=== PATIENT | female | born 1990 | race African-American/Black ===

== ENCOUNTER 2018-04-09 14:55 | Emergency (ER) | payer SELFPAY ==
[2018-04-09 15:49] LABS: APPEARANCE,URINE SLIGHTLY-CLOUDY; BILIRUBIN,URINE NEGATIVE (NEGATIVE); COLOR,URINE YELLOW; GLUCOSE, URINE NEGATIVE (NEGATIVE); KETONES,URINE NEGATIVE (NEGATIVE); LEUKOCYTE ESTERASE,URINE NEGATIVE (NEGATIVE); NITRITE,URINE NEGATIVE (NEGATIVE); PROTEIN,URINE NEGATIVE (NEGATIVE); UROBILINOGEN,URINE NEGATIVE mg/dL (<2.0)
[2018-04-09] MEDS ORDERED: CEFTRIAXONE INJ 1000 MG VIAL IM ONE (16:09)
[2018-04-09] MEDS ORDERED: LIDOCAINE 1% INJ-PF (10 MG/ML) 30 ML SDV INJ ONE (16:09)
--- NOTE | 2018-04-09 16:13 | ER Document Report ---
HPI - HPI Pain Level: 4 Notes: Patient is a otherwise healthy 28-year-old female presenting with left flank pain, fever and urinary urgency. Patient reports that she thinks she may have a kidney infection. Patient denies any abdominal pain or vaginal discharge. Past Medical History - General Information source: Patient - Social History Smoking Status: Never Smoker Frequency of alcohol use: None Drug Abuse: None Family History: Reviewed & Not Pertinent - Medical History Medical History: Negative Surgical Hx: Negative - Immunizations Immunizations up to date: Yes Vertical Provider Document - CONSTITUTIONAL Notes: PHYSICAL EXAMINATION: GENERAL: Well-appearing, well-nourished and in no acute distress. HEAD: Atraumatic, normocephalic. EYES: Pupils equal round extraocular movements intact, conjunctiva are normal. ENT: Nares patent NECK: Normal range of motion ABDOMEN: Soft, nontender, no guarding no rebound. No CVA tenderness. LUNGS: No respiratory distress Musculoskeletal: Normal range of motion NEUROLOGICAL: Normal speech, normal gait. PSYCH: Normal mood, normal affect. SKIN: Warm, Dry, normal turgor, no rashes or lesions noted. Course - Re-evaluation Re-evalutation: Urinalysis is unremarkable. Will place patient on Keflex for cystitis. Urine sent for culture. Patient also given prescription for Diflucan as she states she always gets a yeast infection every time she takes an antibiotic. Patient discharged home in stable condition. - Vital Signs Vital signs: Temp Pulse Resp BP Pulse Ox 98.3 F 77 18 128/76 H 98 04/09/18 14:58 04/09/18 14:58 04/09/18 14:58 04/09/18 14:58 04/09/18 14:58 - Laboratory Laboratory results interpreted by me: 04/09/18 15:26 Urine Ascorbic Acid 20 H Discharge - Discharge Clinical Impression: Cystitis, Dysuria, Fever Condition: Stable Disposition: HOME, SELF-CARE Additional Instructions: URINARY TRACT INFECTION: Your evaluation indicates that you have a urinary tract infection. This is due to germs growing in the bladder. This is a common problem. This infection usually responds quickly to antibiotics. Your antibiotic should be taken exactly as prescribed. Drink plenty of fluids -- three to four quarts a day. Occasionally, a bladder anesthetic will be prescribed to help stop the feeling of urgency until the antibiotic has a chance to clear the infection. This may cause your urine to be dark orange. Certain urine infections require a culture. If the doctor obtained a culture, the results will be back in two days. You should call to see if a change in treatment is needed. A repeat urinalysis after you finish treatment is often recommended. The physician will let you know if further testing is required. Call the doctor if you develop fever, chills, flank pain, inability to urinate, or blood in the urine. ANTIBIOTIC THERAPY: You have been given an antibiotic prescription. It's important that you take all the medication, unless instructed otherwise by your physician. Failure to complete the entire course can result in relapse of your condition. Common side effects of antibiotics include nausea, intestinal cramping, or diarrhea. Women may develop vaginal yeast infections, and babies can get yeast (thrush) in the mouth following the use of antibiotics. Contact your physician if you develop significant side effects from this medication. Allergy to this antibiotic can result in hives, wheezing, faintness, or itching. If symptoms of allergy occur, stop the medication and call the doctor. CEPHALEXIN: The antibiotic you've been prescribed is a member of the cephalosporin class. This type of antibiotic covers a wide variety of infections, including those of the skin, lungs, and urinary tract. It's useful for staph infections. This antibiotic is slightly similar to the penicillin family. In rare cases , a person who is allergic to penicillin will also be allergic to this medication. If you have had a severe allergic reaction to penicillin, and have not taken this antibiotic since that time, notify your doctor. Antibiotics which cover many germs ("broad spectrum" antibiotics) are more likely to cause diarrhea or "yeast" infections. Women prone to vaginal yeast problems may suffer an attack after taking this antibiotic. In infants, oral thrush (white spots "stuck" on the cheek) or yeast diaper rash may result. See your doctor if these problems occur. Call at once if you develop itching, hives , shortness of breath, or lightheadedness. FOLLOW-UP CARE: If you have been referred to a physician for follow-up care, call the physician s office for an appointment as you were instructed or within the next two days. If you experience worsening or a significant change in your symptoms, notify the physician immediately or return to the Emergency Department at any time for re-evaluation. Your urine will be sent for culture, we will call you if there are any abnormalities. Please take the antibiotics exactly as prescribed. Continue taking either ibuprofen or Tylenol for pain and discomfort. Follow-up with your primary care provider in the next 3-5 days for a follow-up. Prescriptions: Cephalexin [Cephalexin 500 MG Capsule] 1 cap PO QID #28 cap Fluconazole [Diflucan] 150 mg PO ONCE PRN #1 tablet PRN Reason: Forms: Return to Work Referrals: LELIA MORGAN, PERSONNEL SCHEDULER [Primary Care Provider] - Follow up as needed
[2018-04-09 16:52] VITALS: BP 119/67
== END 2018-04-09 16:52 | disposition home or self-care (01) ==
LOC: ER 14:55
DX: N30.90 Cystitis, unspecified without hematuria (principal); R50.9 Fever, unspecified
CPT/HCPCS: 99283; 96372; 87086; 81001; J3490; J0696

== ENCOUNTER 2019-01-04 09:00 | Emergency (ER) | payer MEDICAID ==
--- NOTE | 2019-01-04 09:52 | ER Document Report ---
ED General - General Chief Complaint: Shoulder Pain Stated Complaint: SOULDER PAIN Time Seen by Provider: 01/04/19 09:36 - HPI Notes: Patient is a G3, P1 female approximately 5 weeks gestation who presents to the emergency department for evaluation of pelvic pain and left shoulder pain. She states she been having the pelvic pain for a few weeks. She just took her first test on Tuesday. Her last menstrual period was November 28. She states she has had intermittent cramping this seems worse over the last 48 hours. She also states she has had some left shoulder pain. She really cannot pin down a timeframe for that. She states it seems to ache, more when she first wakes up in the morning. She states she was doing some reading online, saw the correlation between left shoulder pain and ectopic , so she presents to the emergency department for further evaluation. She denies any vaginal bleeding or abnormal discharge. She has not yet seen OB. - Related Data Allergies/Adverse Reactions: No Known Allergies Allergy (Verified 04/09/18 14:59) Past Medical History - General Information source: Patient - Social History Smoking Status: Never Smoker Drug Abuse: Marijuana - Quit with Family History: Reviewed & Not Pertinent Renal/ Medical History: Denies: Hx Peritoneal Dialysis - Immunizations Immunizations up to date: Yes Review of Systems - Review of Systems Constitutional: No symptoms reported EENT: No symptoms reported Cardiovascular: No symptoms reported Respiratory: No symptoms reported Gastrointestinal: No symptoms reported Genitourinary: No symptoms reported Female Genitourinary: See HPI Musculoskeletal: See HPI Skin: No symptoms reported Neurological/Psychological: No symptoms reported Physical Exam - Vital signs Vitals: Temp Pulse Resp BP Pulse Ox 98.4 F 80 19 128/63 H 98 01/04/19 09:08 01/04/19 09:08 01/04/19 09:08 01/04/19 09:08 01/04/19 09:08 - Notes Notes: Vital signs reviewed, please refer to chart. Head is normocephalic, atraumatic. Pupils equal round, reactive to light. Neck is supple without meningismus. Heart is regular rate and rhythm. Lungs are clear to auscultation bilaterally. Abdomen is soft, minimal lower abdomen tenderness without rebound or guarding, normoactive bowel sounds throughout. Extremities without cyanosis, clubbing. Posterior calves are nontender. Peripheral pulses are equal. Skin is warm and dry. Patient is awake, alert, neurological exam is nonfocal. Examination of the left shoulder reveals no obvious deformity. No significant tenderness. Full range of motion of the shoulder, elbow, wrist, fingers, thumb. Neurovascularly intact distally to the left upper extremity. Course - Re-evaluation Re-evalutation: 01/04/19 12:28 Patient presents emergency department for evaluation. She has absolutely no vaginal bleeding. She is concerned about the possibility of ectopic . Quantitative beta, urinalysis, ultrasound were ordered. Ultrasound revealed an intrauterine gestation, gestational sac noted, yolk sac noted, no pole at this time. Patient is to follow-up. This is consistent with her dates. I do not have a clear etiology of her shoulder pain. She is told to apply moist heat to the shoulder area, Tylenol if absolutely necessary for pain. Follow-up with OB. She is to return to the ED with worsening or new concerning symptoms of any sort. - Vital Signs Vital signs: Temp Pulse Resp BP Pulse Ox 98.4 F 80 19 128/63 H 98 01/04/19 09:08 01/04/19 09:08 01/04/19 09:08 01/04/19 09:08 01/04/19 09:08 - Laboratory Laboratory results interpreted by me: 01/04/19 01/04/19 09:55 09:55 Beta HCG, Quant 9692.10 H Urine Urobilinogen 2.0 H Ur Leukocyte Esterase TRACE H Urine Ascorbic Acid 40 H - Diagnostic Test Radiology reviewed: Reports reviewed Radiology results interpreted by me: 01/04/19 12:29 Obstetrics Ultrasound 01/04/19 09:48 IMPRESSION: Intrauterine gestational sac suggesting a gestation of 5 weeks 6 days. pole is not yet seen. Follow-up as clinically indicated. Trimester of : First trimester - 0 to 13 weeks. Discharge - Discharge Clinical Impression: Pelvic pain affecting , Left shoulder pain Condition: Stable Disposition: HOME, SELF-CARE Instructions: Pelvic Pain in ([facility]) Additional Instructions: Your ultrasound revealed a in your uterus. It is still very early, repeat ultrasound will likely be necessary. Follow-up with your OB next week. Return to the emergency department with worsening or new concerning symptoms of any sort.
[2019-01-04 10:13] LABS: AMORPHOUS SEDIMENT,URINE TRACE /HPF; APPEARANCE,URINE CLOUDY; BILIRUBIN,URINE NEGATIVE (NEGATIVE); COLOR,URINE YELLOW; GLUCOSE, URINE NEGATIVE (NEGATIVE); KETONES,URINE NEGATIVE (NEGATIVE); LEUKOCYTE ESTERASE,URINE TRACE (NEGATIVE); NITRITE,URINE NEGATIVE (NEGATIVE); PROTEIN,URINE NEGATIVE (NEGATIVE); URINE SPECIFIC GRAVITY 1.026
--- NOTE | 2019-01-04 11:54 | RADIOLOGY REPORT (SQ) ---
EXAM DESCRIPTION: U/S OB TRANSVAGINAL W/O DOP COMPLETED DATE/TIME: 01/04/2019 11:41 am REASON FOR STUDY: Pelvic pain, early COMPARISON: None. TECHNIQUE: Transvaginal static and realtime grayscale images acquired of the pelvis. Additional jhon cted spectral and color Doppler images recorded. All images stored on PACs. bHC,700 CLINICAL DATES: LMP 11/28/2018. 5 weeks 2 days. LIMITATIONS: None. FINDINGS: FETUS: Single Living intrauterine . ULTRASOUND EGA: 5 weeks 6 days by gestational sac size. ULTRASOUND JUAN CARLOS: 08/30/2018 EFW: Not applicable less than 20 weeks. CRL: Not seen. FHR: Not seen. Beats per minute. SURVEY: Too early to assess. AMNIOTIC FLUID: Adequate amount. PLACENTA: Not yet developed due to early gestation. SUBCHORIONIC BLEED: No SIZE OF BLEED: Not applicable. UTERUS: No masses. No anomalies. CERVICAL LENGTH: 2.9 cm. Closed. RIGHT ADNEXA: Normal ovary with normal vascular flow. 3.2 x 3.1 x 2.7 cm. 1.3 cm corpus luteum. No adnexal free fluid. No adnexal masses. LEFT ADNEXA: Normal ovary with normal vascular flow. No adnexal free fluid. No adnexal masses. FREE FLUID: None. OTHER: No other significant finding. IMPRESSION: Intrauterine gestational sac suggesting a gestation of 5 weeks 6 days. pole is no t yet seen. Follow-up as clinically indicated. Trimester of : First trimester - 0 to 13 weeks. TECHNICAL DOCUMENTATION: JOB ID: [id number]- All Rights Reserved rev Reading location - IP/workstation name: [email or web address]
[2019-01-04 13:00] VITALS: BP 126/79
== END 2019-01-04 13:00 | disposition home or self-care (01) ==
LOC: ER 09:00
DX: O26.91 Pregnancy related conditions, unspecified, first trimester (principal); M25.512 Pain in left shoulder; R10.2 Pelvic and perineal pain; Z3A.01 Less than 8 weeks gestation of pregnancy
CPT/HCPCS: 36415; 76817; 81001; 84702; 99284

== ENCOUNTER 2019-04-02 16:19 | Emergency (ER) | payer MEDICAID ==
--- NOTE | 2019-04-02 16:31 | ER Document Report ---
ED Medical Screen (RME) - General Chief Complaint: OB Problem (<20wks) Stated Complaint: VAGINAL BLEEDING Time Seen by Provider: 04/02/19 16:27 Mode of Arrival: Ambulatory Information source: Patient Notes: 29-year-old female presents to ED for complaint of pain burning with urination tinge when wipes. 3 no live . States she is 17 weeks and 6 days. She states she also on felt like she heard a or felt a pop and is had some internal pain in her rectal area since then. She states she called her TRAILER ASSEMBLER and they told her to take some Tylenol and keep her appointment which is Tuesday. She states she also had some nausea and vomiting on due to her reflux she took some medicine for that and is not having vomiting now. Patient is alert oriented respirations regular nonlabored speaking in full sentences. Patient denies smoking drinking or alcohol. I have greeted and performed a rapid initial assessment of this patient. A comprehensive ED assessment and evaluation of the patient, analysis of test results and completion of medical decision making process will be conducted by an additional ED providers. - Related Data Allergies/Adverse Reactions: No Known Allergies Allergy (Verified 04/09/18 14:59) Past Medical History Renal/ Medical History: Denies: Hx Peritoneal Dialysis - Immunizations Immunizations up to date: Yes
[2019-04-02 17:30] LABS: APPEARANCE,URINE CLOUDY; BILIRUBIN,URINE NEGATIVE (NEGATIVE); GLUCOSE, URINE NEGATIVE (NEGATIVE); KETONES,URINE TRACE mg/dL (NEGATIVE); PROTEIN,URINE 30 mg/dL (NEGATIVE); URINE SPECIFIC GRAVITY 1.029
[2019-04-02 17:31] LABS: COLOR,URINE YELLOW
[2019-04-02 18:38] VITALS: BP 122/78
[2019-04-02] MEDS ORDERED: CEFUROXIME 500 MG TABLET PO ONE (18:40)
--- NOTE | 2019-04-02 18:45 | ER Document Report ---
ED General - General Chief Complaint: Vag Bleeding, +preg <12wks Stated Complaint: VAGINAL BLEEDING Time Seen by Provider: 04/02/19 16:27 Mode of Arrival: Ambulatory TRAVEL OUTSIDE OF THE [place] IN LAST 30 DAYS: No - HPI Notes: 29-year-old female G3, P0 approximately 17/2 weeks by dates presents with some blood-tinged urine and dysuria. Gradual onset over 2 days. No cu rrent back pain. No current fever. No current vomiting. Moderate intensity, gradual onset. Denies any vaginal bleeding or leakage. No cramping or pelvic pain. No history of recent UTI or kidney infection. Sees the health department for OB and establish follow-up and has an appointment with her CASINO ENFORCEMENT AGENT on this Tuesday. No other modifying factors, no other associated symptoms, no other provocative or palliative factors. Moderate intensity, gradual onset. - Related Data Allergies/Adverse Reactions: No Known Allergies Allergy (Verified 04/09/18 14:59) Home Medications: medication for acid reflux (cannot remember medication). Past Medical History - General Information source: Patient - Social History Smoking Status: Never Smoker Family History: Reviewed & Not Pertinent Patient has suicidal ideation: No Patient has homicidal ideation: No - Medical History Notes: Currently Renal/ Medical History: Denies: Hx Peritoneal Dialysis - Immunizations Immunizations up to date: Yes Review of Systems - Review of Systems Notes: Review of systems as in the history of present illness, otherwise negative x 10 systems. Physical Exam - Vital signs Vitals: Temp Pulse Resp BP Pulse Ox 99.7 F 110 H 14 153/94 H 98 04/02/19 16:38 04/02/19 16:38 04/02/19 16:38 04/02/19 16:38 04/02/19 16:38 - Notes Notes: General: Well developed . HEENT: Normocephalic, atraumatic. Pupils equal round reactive to light. No JVD. Chest: No trauma. Respiratory: Good air exchange, normal excursion. Cardiac: Regular rhythm. No murmurs or gallops. Abdomen: Soft, benign. Nondistended. Nontender. Back: No asymmetry or gross abnormality. Motor: Grossly normal power and tone. Neurologic: Alert, nonfocal. Cranial nerves II-12 are intact. Sensation intact. 2+ reflexes, no clonus. Vascular: Well perfused. Normal peripheral pulses. Skin: No petechiae or purpura. Course - Re-evaluation Re-evalutation: 04/02/19 18:42 This is an exceptionally well-appearing 29-year-old female who presents the after mentioned symptoms. Patient seen by the provider in triage was ordered blood work and urine. Patient is refused any blood work or IV sticks. Urinalysis shows proteinuria, ketonuria, pyuria, hematuria and bacteriuria. Is unclear whether the patient may have some element of contamination. I spoke with her at length about the protein in her urine, she states ever since she was a little kid they have told her that she had protein in her urine. She otherwise is declined any IV access or further work-up, refused intramuscular injection. I am going to cover her with antibiotics for UTI, given a dose of cefuroxime and a prescription for the same. She has close follow-up, as well in appearance. Of note, I did check her blood pressure myself and is 122/78. She has no antecedent history of hypertension. She also has no headache, no visual changes, no history of preeclampsia. She is cautioned to return here immediately if she has any worsening otherwise is discharged home with a prescription for antibiotics and close outpatient follow-up. She also understands the critical need for outpatient follow-up with regard to proteinuria. Although this may be contamination, this will need to be research further as an outpatient. 04/02/19 18:43 - Vital Signs Vital signs: Temp Pulse Resp BP Pulse Ox 99.7 F 110 H 14 122/78 98 04/02/19 16:38 04/02/19 16:38 04/02/19 16:38 04/02/19 18:38 04/02/19 16:38 - Laboratory Laboratory results interpreted by me: 04/02/19 16:35 Urine Protein 30 H Urine Ketones TRACE H Urine Blood LARGE H Urine Urobilinogen 4.0 H Leukocyte Esterase Rfl MODERATE H Discharge - Discharge Clinical Impression: UTI (urinary tract infection) Qualifiers: Urinary tract infection type: acute cystitis Hematuria presence: with hematuria Qualified Code(s): N30.01 - Acute cystitis with hematuria Condition: Stable Disposition: HOME, SELF-CARE Instructions: Urinary Tract Infection ([facility]) Prescriptions: Cefuroxime Axetil [Ceftin 500 mg Tablet] 1 tab PO BID #20 tablet
== END 2019-04-02 19:20 | disposition home or self-care (01) ==
LOC: ER 16:19
DX: O23.10 Infections of bladder in pregnancy, unspecified trimester (principal); O12.10 Gestational proteinuria, unspecified trimester; O26.899 Other specified pregnancy related conditions, unspecified trimester; R31.0 Gross hematuria; R82.4 Acetonuria; R82.71 Bacteriuria; O99.619 Diseases of the digestive system complicating pregnancy, unspecified trimester; K21.9 Gastro-esophageal reflux disease without esophagitis; Z79.899 Other long term (current) drug therapy; Z3A.00 Weeks of gestation of pregnancy not specified
CPT/HCPCS: 99283; 87086; 81001; J3490

== ENCOUNTER 2019-09-04 10:34 | Outpatient (CLI) | payer MEDICAID ==
[2019-09-04 11:24] LABS: APPEARANCE,URINE SLIGHTLY-CLOUDY; BILIRUBIN,URINE NEGATIVE (NEGATIVE); COLOR,URINE YELLOW; GLUCOSE, URINE NEGATIVE (NEGATIVE); KETONES,URINE NEGATIVE (NEGATIVE); LEUKOCYTE ESTERASE,URINE SMALL (NEGATIVE); NITRITE,URINE NEGATIVE (NEGATIVE); PROTEIN,URINE 30 mg/dL (NEGATIVE); URINE SPECIFIC GRAVITY 1.027
[2019-09-04 11:46] LABS: BACTERIA (WET MOUNT) 4+ BACTERIA SEEN; EPITHELIALS (WET MOUNT) 4+ EPITHELIALS SEEN; RBCS (WET MOUNT) 1+ RBCS SEEN; T.VAGINALIS (WET MOUNT) NO TRICHOMONAS SEEN; WBCS (WET MOUNT) 2+ WBCS SEEN; YEAST (WET MOUNT) NO YEAST SEEN
[2019-09-04 11:49] LABS: URINE AMPHETAMINES SCREEN NEGATIVE; URINE BARBITURATES SCREEN NEGATIVE; URINE BENZODIAZEPINES SCREEN NEGATIVE; URINE COCAINE SCREEN NEGATIVE; URINE MARIJUANA (THC) SCREEN NEGATIVE; URINE METHADONE SCREEN NEGATIVE; URINE PHENCYCLIDINE SCREEN NEGATIVE
[2019-09-04] MEDS ORDERED: RINGERS SOLUTION,LACTATED 1,000 ML IV ONE (12:17)
--- NOTE | 2019-09-04 15:22 | RADIOLOGY REPORT (SQ) ---
EXAM DESCRIPTION: U/S OB LIMITED COMPLETED DATE/TIME: 09/04/2019 3:12 pm REASON FOR STUDY: Repeat RAMILA after IV hydration COMPARISON: None. TECHNIQUE: Limited transabdominal grayscale ultrasound for evaluation of specific requested obstetri angelo parameters. LIMITATIONS: None. FINDINGS: CERVICAL LENGTH: Not seen. RAMILA: 11.8 cm. FHR: 141 beats per minute. PRESENTATION: Cephalic. PLACENTA: Anterior. Grade 2 ANATOMY: Not assessed OTHER: 40 week gestation. IMPRESSION: LIMITED OBSTETRICAL ULTRASOUND WITH MEASURED PARAMETERS DELINEATED ABOVE. Trimester of : Third trimester - 28 weeks to delivery. TECHNICAL DOCUMENTATION: JOB ID: [id number] 2010 [employer]- All Rights Reserved Reading location - IP/workstation name: [email or web address]
--- NOTE | 2019-09-04 17:29 | Non Stress Test Report ---
Non Stress Test Datetime Report Generated by CPN: 09/04/2019 17:29 DEMOGRAPHIC EGA NST: 40.0 INDICATION Indication for Study (NST) Other: LABOR CHECK VITAL SIGNS Pulse - NST: 87 RESP - NST: 16 NBPSYS NST: 131 NBPDIA NST: 72 MONITORING Monitor Explained: Monitor Explained; Test Explained; Patient Verbalized Understanding Monitor Explained: Monitor Explained; Test Explained; Patient Verbalized Understanding Time on Monitor: 09/04/2019 11:10 Time on Monitor: 09/04/2019 11:10 Time off Monitor: 09/04/2019 14:51 NST Duration: 221 NST INTERVENTIONS NST Interventions: PO Hydration; Reposition Patient NST Interventions: PO Hydration; Reposition Patient Physician Notified NST: Estrellita EDMONDSON CNM BABY A: [id number] BABY A Movement : Present Contraction Frequency : IRREG Contraction Frequency : irregular FHR Baseline : 140 Accelerations : 15X15 Decelerations : Late Variability : Moderate 6-25bpm NST Review: Meets Criteria for Reactive NST NST Review and Verified By : ELLA BENEDICT RN NST Results: Reactive NST REPORT Report Trigger: Send Report
== END 2019-09-04 16:46 | disposition home or self-care (01) ==
LOC: LC 10:34
PROVIDERS: ATTEND Obstetrics & Gynecology
PROC: 4A1HXCZ Monitoring of Products of Conception, Cardiac Rate, External Approach (ICD-10-PCS; principal; 2019-09-04)
DX: O47.1 False labor at or after 37 completed weeks of gestation (principal); Z3A.40 40 weeks gestation of pregnancy
CPT/HCPCS: 87210; 81005; 80307; 84112; 76815; 59025; Q0114

== ENCOUNTER 2019-09-06 13:18 | Inpatient (IN) | payer MEDICAID ==
[2019-09-06 13:55] LABS: APPEARANCE,URINE CLOUDY; BILIRUBIN,URINE NEGATIVE (NEGATIVE); COLOR,URINE YELLOW; GLUCOSE, URINE NEGATIVE (NEGATIVE); KETONES,URINE NEGATIVE (NEGATIVE); LEUKOCYTE ESTERASE,URINE TRACE (NEGATIVE); NITRITE,URINE NEGATIVE (NEGATIVE); PROTEIN,URINE 30 mg/dL (NEGATIVE); URINE SPECIFIC GRAVITY 1.023
[2019-09-06 14:27] LABS: URINE AMPHETAMINES SCREEN NEGATIVE; URINE BARBITURATES SCREEN NEGATIVE; URINE BENZODIAZEPINES SCREEN NEGATIVE; URINE COCAINE SCREEN NEGATIVE; URINE MARIJUANA (THC) SCREEN NEGATIVE; URINE METHADONE SCREEN NEGATIVE; URINE PHENCYCLIDINE SCREEN NEGATIVE
--- NOTE | 2019-09-06 16:59 | RADIOLOGY REPORT (SQ) ---
EXAM DESCRIPTION: U/S PROFILE W/O STRESS COMPLETED DATE/TIME: 09/06/2019 4:44 pm REASON FOR STUDY: NR NST COMPARISON: None. TECHNIQUE: Limited choudhary-scale realtime and static images of the fetus to measure specified parameter s. LIMITATIONS: None. FINDINGS: HEART RATE: 153 beats per minute. RAMILA: 1.6 cm. Oligohydramnios. BREATHING MOVEMENT: 2 points. MOVEMENT: 0 points. POSTURE AND TONE: 0 points. QUALITATIVE RAMILA: 0 points. OTHER: No other significant finding. IMPRESSION: BIOPHYSICAL PROFILE: 8. Trimester of : Third - 28 weeks to delivery RECOMMENDATION: Attempted unsuccessfully to report the results to the ordering physician at the numb er listed above. COMMENT: BREATHING MOVEMENTS: 2 POINTS: PRESENT 0 POINTS: ABSENT MOTION: 2 POINTS: PRESENT 0 POINTS: ABSENT TONE: 2 POINTS: PRESENT 0 POINTS: ABSENT AMNIOTIC FLUID VOLUME: 2 POINTS: LARGEST POCKET GREATER THAN 2 CM DEPTH. 0 POINTS: NO POCKET OF 2 CM. TECHNICAL DOCUMENTATION: JOB ID: [id number] 2010 [employer]- All Rights Reserved Reading location - IP/workstation name: [email or web address]
[2019-09-06] MEDS ORDERED: RINGERS SOLUTION,LACTATED 1,000 ML IV ONE (17:07)
[2019-09-06] MEDS ORDERED: DINOPROSTONE 10 MG VAGINAL INSERT.SR PV PRN (17:07)
--- NOTE | 2019-09-06 17:07 | Admission Physical ---
Datetime Report Generated by CPN: 09/06/2019 17:06 CURRENT ADMISSION Chief Complaint: Suspected Ruptured Membranes Indication for Induction: Oligohydramnios Admit Impression : Term, Intrauterine ; No Active Labor Admit Plan: Admit to Unit; Initiate Labor Induction Protocol ALLERGIES Medication Allergies: No Medication Allergies: No Known Allergies (04/09/2018) Latex: No Latex Allergies Food Allergies: none Environmental Allergies: none OBSTETRICAL HISTORY EDC: 09/04/2019 00:00 : 1 Para: 0 Term: 0 : 0 SAB: 0 IAB: 0 Ectopic: 0 Livin Cesareans: 0 VBACs: 0 Multiple Births: 0 Gestational Diabetes: No Rh Sensitization: No Incompetent Cervix: No MARGRET: No Infertility: No ART Treatment: No Uterine Anomaly: No IUGR: No Hx Previous C/S: No Macrosomia: No Hx Loss/Stillborn: No PIH: No Hx : No Placenta Previa/Abruption: No Depression/PP Depression: No PTL/PROM: No Post Hemorrhage: No Current Procedures: Ultrasound; NST Obstetrical History Comments: G1: current SEE RECORDS Alcohol: No Marijuana : No Cocaine: No Other Illicit Drugs: No Cigarettes: Never Smoker. [id number] MEDICAL HISTORY Diabetes: No Blood Transfusion: No Pulmonary Disease (Asthma, TB): No Breast Disease: No Hypertension: No Personal Protection Specialist Surgery: No Heart Disease: No Hosp/Surgery: No Autoimmune Disorder: No Anesthetic Complications: No Kidney Disease: No Abnormal Pap Smear: No Neuro/Epilepsy: No Psychiatric Disorders: No Other Medical Diseases: No Hepatitis/Liver Disease: No Significant Family History: No Varicosities/Phlebitis: No Trauma/Violence : No Thyroid Dysfunction: No INFECTIOUS HISTORY Gonorrhea: No Genital Herpes: No Chlamydia: No Tuberculosis: No Syphilis: No Hepatitis: No HIV/AIDS Exposure: No Rash or Viral Illness: No HPV: No PHYSICAL EXAM General: Normal HEENT: Normal Neurologic: Normal Thyroid: Deferred Heart: Normal Lungs: Normal Breast: Deferred Back: Normal Abdomen: Normal Genitourinary Exam: Normal Extremities: Normal DTRs: Deferred Pelvic Type: Adequate Vital Signs: Reviewed; Within Normal Limits VAGINAL EXAM Dilatation: 0 Effacement: 0 Station: -3 Contraction Comments: rare (Annotations: Data stored by CPN on behalf of user) MEMBRANES Membranes: Intact FETUS A EGA: 40.2 Monitoring: External US FHR- Baseline: 140 Variability: Moderate 6-25bpm Accelerations: 10X10 Decelerations: None FHR Category: Category I Estimated Weight (gm): 3650 Presentation: Vertex Admit Comment: at 40+2 presented to L_D because she "felt a pop"-actim prom was negative. sent for BPP d/t NR NST in first 40 mins, showed RAMILA less than 2. pt agrees to IOL. P:cervidil tonight, IOL PLANS FOR LABOR AND DELIVERY Labor and Delivery: None Pain Management: Epidural Feeding Preference: Both Benefit of Breast Feed Discussed: Yes Circumcision: N/A INFORMED CONSENT Assignment: Wilder Jules MD Signature: with User ID: [email or web address] : with User ID: [email or web address]
[2019-09-06] MEDS ORDERED: DINOPROSTONE 10 MG VAGINAL INSERT.SR ONE (17:23)
[2019-09-06] MEDS ORDERED: LIDOCAINE 2% JELLY 5 ML TUBE ONE (17:23)
[2019-09-06] MEDS ORDERED: LIDOCAINE 2% JELLY 5 ML TUBE TOP ONE (17:25)
[2019-09-06 17:51] LABS: ABSOLUTE EOSINOPHILS # (AUTO) 0.1 10^3/uL (0.0-0.6); ABSOLUTE LYMPHOCYTES (AUTO) 1.8 10^3/uL (0.5-4.7); ABSOLUTE MONOCYTES (AUTO) 0.5 10^3/uL (0.1-1.4); ABSOLUTE NEUT (AUTO) 3.2 10^3/uL (1.7-8.2); BASOPHILS % (AUTO) 0.2 % (0-2); EOSINOPHILS % (AUTO) 1.2 % (0-6); HEMATOCRIT 36.9 % (36.0-47.0); HEMOGLOBIN 12.6 g/dL (12.0-15.5); LYMPHOCYTES % (AUTO) 32.6 % (13-45); MEAN CORPUSCULAR HGB CONC 34.2 g/dL (32.0-36.0); MEAN CORPUSCULAR VOLUME 91 fl (80-97); MONOCYTES % (AUTO) 8.9 % (3-13); PLATELET COUNT 239 10^3/uL (150-450); RED BLOOD COUNT 4.07 10^6/uL (3.72-5.28); RED CELL DISTRIBUTION WIDTH 13.8 % (11.5-14.0); SEGMENTED NEUTROPHILS % (AUTO) 57.1 % (42-78); TOTAL CELLS COUNTED % (AUTO) 100 %; WHITE BLOOD COUNT 5.6 10^3/uL (4.0-10.5)
[2019-09-06] MEDS ORDERED: ZOLPIDEM TARTRATE 5 MG TABLET ONE (21:34)
[2019-09-06] MEDS ORDERED: MORPHINE SULFATE 10 MG/ML INJ IV ONE (23:02)
[2019-09-06] MEDS ORDERED: MORPHINE SULFATE 10 MG/ML INJ ONE (23:04)
[2019-09-06] MEDS ORDERED: OXYTOCIN 10 UNIT/ML VIAL ONE (23:56)
[2019-09-06] MEDS ORDERED: LIDOCAINE 1% INJ-PF (10 MG/ML) 30 ML SDV ONE (23:57)
[2019-09-06] MEDS ORDERED: BUPIVACAINE HCL 0.25 % INJ/PF (2.5 MG/1 ML) 30 ML VIAL ONE (23:57)
[2019-09-06] MEDS ORDERED: EPHEDRINE SULFATE INJ 50 MG/1 ML AMPULE ONE (23:57)
[2019-09-06] MEDS ORDERED: MISOPROSTOL 0.2 MG TABLET ONE (23:57)
[2019-09-06] MEDS ORDERED: OXYTOCIN/NORMAL SALINE 20 UNIT/1,000 ML RTUINJ ONE (23:57)
[2019-09-06] MEDS ORDERED: FENTANYL/BUPIVACAINE/NS/PF 300 MCG/150 ML RTUINJ EPI ONE (23:58)
[2019-09-07] MEDS ORDERED: MEASLES,MUMPS&RUBELLA VACC/PF 0.5 ML VIAL SUBCUT PRN (03:14)
[2019-09-07] MEDS ORDERED: MAGNESIUM HYDROXIDE SUSP 30 ML UDCUP PO PRN (03:14)
[2019-09-07] MEDS ORDERED: PSEUDOEPHEDRINE HCL 30 MG TABLET PO PRN (03:14)
[2019-09-07] MEDS ORDERED: PROMETHAZINE HCL INJ 25 MG/1 ML VIAL IV PRN (03:14)
[2019-09-07] MEDS ORDERED: DIPHENHYDRAMINE HCL 25 MG CAPSULE PO PRN (03:14)
[2019-09-07] MEDS ORDERED: GLYCERIN/WITCH HAZEL LEAF 1 EACH MED..WIPE TP PRN (03:14)
[2019-09-07] MEDS ORDERED: DIPH/PERTUSS(ACELL)/TETANUS VAC/PF 0.5 ML SYR (>=10YO) IM PRN (03:14)
[2019-09-07] MEDS ORDERED: ZOLPIDEM TARTRATE 5 MG TABLET PO PRN (03:14)
[2019-09-07] MEDS ORDERED: OXYTOCIN/NORMAL SALINE 20 UNIT/1,000 ML RTUINJ IV PRN ×2 (03:14→05:00)
[2019-09-07] MEDS ORDERED: BENZOCAINE/MENTHOL AEROSOL SPRAY 56 ML TOP PRN (03:14)
[2019-09-07] MEDS ORDERED: ACETAMINOPHEN 650 MG SUPP.RECT PR PRN (03:14)
[2019-09-07] MEDS ORDERED: DIBUCAINE 1% OINTMENT 28 GM TP PRN (03:14)
[2019-09-07] MEDS ORDERED: PROMETHAZINE HCL 25 MG SUPP.RECT PR PRN (03:14)
[2019-09-07] MEDS ORDERED: PROMETHAZINE HCL 25 MG TABLET PO PRN (03:14)
[2019-09-07] MEDS ORDERED: NA PHOS,M-B/NA PHOS,DI-BA (ADULT) 133 ML ENEMA PR PRN (03:14)
[2019-09-07] MEDS ORDERED: IBUPROFEN 800 MG TABLET ONE (03:16)
--- NOTE | 2019-09-07 04:26 | Delivery Summary ---
Del Sum A-C Datetime Report Generated by CPN: 09/07/2019 04:25 DELIVERY PERSONNEL DELIVERY PERSONNEL: [id number] Delivery Doctor:: Wilder Jules MD Labor and Delivery Nurse:: Jojo Alexandre RNresidential case manager Nurse:: Luis Lugo RN Nursery Nurse:: Carito HAWLEY Tyre Fitter/DIE STAMPER: Tanya Green, ST MATERNAL INFORMATION Delivery Anesthesia: Epidural Medications After Delivery: Pitocin Bolus-Please Comment Meds After Delivery Comment: 20 units pitocin after placenta delivery Estimated Blood Loss (ml): 200 Delivery QBL: 200 Maternal Complications: None LABOR SUMMARY EDC: 09/04/2019 00:00 No. Babies in Womb: 1 Attempted: No Labor Anesthesia: Epidural LABOR INFORMATION Reason for Induction: Oligohydramnios Onset of Labor: 09/06/2019 22:59 Complete Dilatation: 09/07/2019 01:33 Cervical Ripening Agents: Cervidil Oxytocin: N/A Group B Beta Strep: negative Antibiotics # of Doses: none Steroids Given: None Reason Steroids Not Administered: Not Applicable MEMBRANES Membranes Rupture Method: Spontaneous Rupture of Membranes: 09/06/2019 22:33 Length of Rupture (hr): 4.35 Amniotic Fluid Color: Clear Amniotic Fluid Amount: Small Amniotic Fluid Odor: Normal STAGES OF LABOR Stage 1 hr: 2 Stage 1 min: 34 Stage 2 hr: 1 Stage 2 min: 21 Stage 3 hr: 0 Stage 3 min: 3 Total Time in Labor hr: 3 Total Time in Labor min: 58 VAGINAL DELIVERY Episiotomy: None Laceration #1: Vaginal Laceration Extension #1: N/A Laceration Repair: Yes Laceration Repair Note: repaired with 2-0 vicryl Sponge Count Correct: Yes Sharps Count Correct: Yes CSECTION DELIVERY Primary Indication: N/A Secondary Indication: N/A CSection Urgency: N/A CSection Incidence: N/A Labor: N/A Elective: N/A CSection Incision: N/A BABY A INFORMATION Infant Delivery Date/Time: 09/07/2019 02:54 Method of Delivery: Vaginal Nurse Controlled Delivery: No Born in Route : No : N/A Forceps: N/A Vacuum Extraction: Successful Shoulder Dystocia : No ASSISTED DELIVERY BABY A Vacuum Number of Pulls: 1 Vacuum Number of PopOffs: 0 Vacuum Maximum Pressure Obtained: 550 Reduce Pressure btwn Ctx: No Total Time Vacuum Applied: 60 sec Vacuum/Forceps Comment: 1 pull no pop offs PRESENTATION/POSITION BABY A Presentation: Cephalic Cephalic Presentation: Vertex Vertex Position: OA Breech Presentation: N/A PLACENTA INFORMATION BABY A Placenta Delivery Time : 09/07/2019 02:57 Placenta Method of Delivery: Spontaneous Placenta Status: Delivered SCORES BABY A Heart Rate 1 min: >100 bpm Resp Effort 1 min: Good Cry Reflex Irritability 1 min: Cough or Sneeze or Pulls Away Muscle Tone 1 min: Active Motion Color 1 min: Blue/Pale Resuscitation Effort 1 min: Tactile Stimulation SCORE 1 MIN: 8 Heart Rate 5 min: >100 bpm Resp Effort 5 min: Good Cry Reflex Irritability 5 min: Cough or Sneeze or Pulls Away Muscle Tone 5 min: Active Motion Color 5 min: Body Center [place], Extremities Blue SCORE 5 MIN: 9 INFORMATION BABY A Gestational Age at Delivery: 40.3 Gestational Status: Full Term- 39- 40.6 Weeks Infant Outcome : Liveborn Infant Condition : Stable Sex: Female IDENTIFICATION BABY A Verification Date/Time: 09/07/2019 03:27 ID Band Number: [id number] Mother's Name Verified: Yes Infant RN Verifying : RCarson Lugo RN/Keenan Santana RN WEIGHT/LENGTH BABY A Birthweight (gm): 3450 Infant Weight (lb): 7 Weight (oz): 10 Infant Length (in): 21.00 Infant Length (cm): 53.34 CORD INFORMATION BABY A No. Cord Vessels: 3 Nuchal Cord : N/A Cord Blood Taken: Yes-For Storage (Mom's Blood type +) Suction: None ASSESSMENT BABY A Complications: Multiple Late Decels; Multiple Variable Decels Physical Findings- Other: see nursery assessment Infant Respirations: Appears Normal Skin to Skin: Yes Brim Pouncer Machine Operator/ALS Called : No Care By: Carito Pitts [facility] Transferred To: Remains with Mother BABY B INFORMATION : N/A SIGNATURES Signature: with User ID: [email or web address] : I was personally available for consultation and serving as supervising physician for the MLP.
[2019-09-07] MEDS: PRENATAL VITAMIN W DHA CAPSULE PO SCH (10:39)
[2019-09-07] MEDS: DOCUSATE SODIUM 100 MG CAPSULE PO SCH ×2 (10:39→18:19)
[2019-09-07] MEDS: SENNOSIDES/DOCUSATE 8.6-50 MG 1 EACH TABLET PO SCH (10:39)
[2019-09-07] MEDS: FERROUS SULFATE 325 MG TABLET PO SCH ×2 (10:39→18:19)
[2019-09-07] MEDS: METRONIDAZOLE 500 MG TABLET PO SCH ×3 (10:40→21:48)
[2019-09-07] MEDS: FAMOTIDINE 20 MG TABLET PO SCH ×2 (12:13→21:48)
[2019-09-07] MEDS: ACETAMINOPHEN WITH CODEINE #3 TABLET PO PRN ×2 (13:59→18:22)
[2019-09-07] MEDS: IBUPROFEN 800 MG TABLET PO SCH ×3 (14:01→21:48)
[2019-09-07] MEDS ORDERED: FAMOTIDINE 20 MG TABLET ONE (21:15)
[2019-09-08] MEDS: IBUPROFEN 800 MG TABLET PO SCH (06:07)
[2019-09-08 06:40] LABS: HEMATOCRIT 30.7 % (36.0-47.0); HEMOGLOBIN 10.7 g/dL (12.0-15.5); MEAN CORPUSCULAR HEMOGLOBIN 31.4 pg (27.0-33.4); MEAN CORPUSCULAR VOLUME 90 fl (80-97); PLATELET COUNT 187 10^3/uL (150-450); RED BLOOD COUNT 3.43 10^6/uL (3.72-5.28); WHITE BLOOD COUNT 8.7 10^3/uL (4.0-10.5)
[2019-09-08 08:18] VITALS: BP 117/59
[2019-09-08] MEDS: DOCUSATE SODIUM 100 MG CAPSULE PO SCH (09:19)
[2019-09-08] MEDS: SENNOSIDES/DOCUSATE 8.6-50 MG 1 EACH TABLET PO SCH (09:20)
[2019-09-08] MEDS: METRONIDAZOLE 500 MG TABLET PO SCH (09:20)
[2019-09-08] MEDS: PRENATAL VITAMIN W DHA CAPSULE PO SCH (09:20)
[2019-09-08] MEDS: FERROUS SULFATE 325 MG TABLET PO SCH (09:20)
[2019-09-08] MEDS: FAMOTIDINE 20 MG TABLET PO SCH (09:20)
--- NOTE | 2019-09-08 10:06 | PDOC PROGRESS REPORT ---
Subjective-OB Progress Note for:: 09/08/19 Subjective: reports bleeding slowing, pain controlled with current meds, denies needs. Physical Exam (OB) Vital Signs: Temp Pulse Resp BP Pulse Ox 97.7 F 84 16 117/59 L 96 09/08/19 08:00 09/08/19 08:00 09/08/19 08:00 09/08/19 08:00 09/08/19 08:00 Intake & Output 09/07/19 09/08/19 09/09/19 06:59 06:59 06:59 Weight 103 kg - Abdomen Description: Soft, Round Fundal Description: Firm Fundal Height: u/u - u/2 - Abdominal Distension: No distension Tenderness: Nontender - Extremities Lower extremities: Malu's sign - neg Calf: Normal, Nontender Objective-Diagnostic Laboratory: 09/08/19 06:05 09/08/19 06:05 WBC 8.7 RBC 3.43 L Hgb 10.7 L Hct 30.7 L MCV 90 MCH 31.4 MCHC 35.0 RDW 14.0 Plt Count 187 Assessment and Plan(PN) - Assessment and Plan (1) Encounter for induction of labor Is this a current diagnosis for this admission?: Yes (2) Obstetrical laceration Is this a current diagnosis for this admission?: Yes (3) Oligohydramnios Is this a current diagnosis for this admission?: Yes (4) Vacuum-assisted vaginal delivery Is this a current diagnosis for this admission?: Yes - Time Spent with Patient Time with patient: Less than 15 minutes Medications reviewed and adjusted accordingly: Yes - Disposition Anticipated Discharge: Home Within: within 24 hours
[2019-09-08] MEDS: ACETAMINOPHEN WITH CODEINE #3 TABLET PO PRN (11:52)
--- NOTE | 2019-09-08 15:30 | PDOC DISCHARGE SUMMARY ---
Impression - Admit/DC Date/PCP Admission Date/Primary Care Provider: 09/06/19 16:48 CRISTINA MCLEOD MD Discharge Date: 09/08/19 - Discharge Diagnosis (1) Encounter for induction of labor Is this a current diagnosis for this admission?: Yes (2) Obstetrical laceration Is this a current diagnosis for this admission?: Yes (3) Oligohydramnios Is this a current diagnosis for this admission?: Yes (4) Vacuum-assisted vaginal delivery Is this a current diagnosis for this admission?: Yes - Additional Information Discharge Diet: Regular Discharge Activity: Balance Activity w/Rest, Pelvic Rest [facility] [Provider Group] Prescriptions: Ibuprofen [Motrin 800 mg Tablet] 800 mg PO Q8HP PRN #60 tablet PRN Reason: Home Medications: Ibuprofen [Motrin 800 mg Tablet] 800 mg PO Q8HP PRN #60 tablet 09/08/19 HPI Gestational Age: 40+2 Reason(s) for Admission: Induction of Labor - oligohydramnios, BPP 410 Intrapartum Procedure(s): Vacuum Extraction Complication(s): Laceration-Vaginal Results Laboratory Results: WBC 8.7 10^3/uL (4.0-10.5) 09/08/19 06:05 RBC 3.43 10^6/uL (3.72-5.28) L 09/08/19 06:05 Hgb 10.7 g/dL (12.0-15.5) L 09/08/19 06:05 Hct 30.7 % (36.0-47.0) L 09/08/19 06:05 MCV 90 fl (80-97) 09/08/19 06:05 MCH 31.4 pg (27.0-33.4) 09/08/19 06:05 MCHC 35.0 g/dL (32.0-36.0) 09/08/19 06:05 RDW 14.0 % (11.5-14.0) 09/08/19 06:05 Plt Count 187 10^3/uL (150-450) 09/08/19 06:05 Lymph % (Auto) 32.6 % (13-45) 09/06/19 17:26 [place] % (Auto) 8.9 % (3-13) 09/06/19 17:26 Eos % (Auto) 1.2 % (0-6) 09/06/19 17: Baso % (Auto) 0.2 % (0-2) 09/06/19 17: Absolute Neuts (auto) 3.2 10^3/uL (1.7-8.2) 09/06/19 17: Absolute Lymphs (auto) 1.8 10^3/uL (0.5-4.7) 09/06/19 17: Absolute Monos (auto) 0.5 10^3/uL (0.1-1.4) 09/06/19 17: Absolute Eos (auto) 0.1 10^3/uL (0.0-0.6) 09/06/19 17: Absolute Basos (auto) 0.0 10^3/uL (0.0-0.2) 09/06/19 17: Seg Neutrophils % 57.1 % (42-78) 09/06/19 17: Urine Color YELLOW 09/06/19 13:35 Urine Appearance CLOUDY 09/06/19 13:35 Urine pH 6.0 (5.0-9.0) 09/06/19 13:35 Ur Specific [place] 1.023 09/06/19 13:35 Urine Protein 30 mg/dL (NEGATIVE) H 09/06/19 13:35 Urine Glucose (UA) NEGATIVE mg/dL (NEGATIVE) 09/06/19 13:35 Urine Ketones NEGATIVE mg/dL (NEGATIVE) 09/06/19 13:35 Urine Blood SMALL (NEGATIVE) H 09/06/19 13:35 Urine Nitrite NEGATIVE (NEGATIVE) 09/06/19 13:35 Urine Bilirubin NEGATIVE (NEGATIVE) 09/06/19 13:35 Urine Urobilinogen 2.0 mg/dL (<2.0) H 09/06/19 13:35 Ur Leukocyte Esterase TRACE (NEGATIVE) H 09/06/19 13:35 Urine Ascorbic Acid NEGATIVE (NEGATIVE) 09/06/19 13:35 Membranes Rupture NEGATIVE (NEGATIVE) 09/06/19 13:35 Urine Opiates Screen NEGATIVE 09/06/19 13:35 Urine Methadone Screen NEGATIVE 09/06/19 13:35 Ur Barbiturates Screen NEGATIVE 09/06/19 13:35 Ur Phencyclidine Scrn NEGATIVE 09/06/19 13:35 Ur Amphetamines Screen NEGATIVE 09/06/19 13:35 U Benzodiazepines Scrn NEGATIVE 09/06/19 13:35 Urine Cocaine Screen NEGATIVE 09/06/19 13:35 U Marijuana (THC) Screen NEGATIVE 09/06/19 13:35 RPR NONREACTIVE (NONREACTIVE) 09/06/19 17:26 Blood Type B POSITIVE 09/06/19 17:26 Antibody Screen NEGATIVE 09/06/19 17:26 Impressions: Stress Test 09/06/19 14:48 IMPRESSION: BIOPHYSICAL PROFILE: 07/21. Trimester of : Third - 28 weeks to delivery Plan Plan of Treatment: follow up in 4 weeks at [facility] for post check
== END 2019-09-08 14:40 | disposition home or self-care (01) | DRG 807 ==
LOC: LC 13:18 → LR 16:48 → 2S 09-07 04:55
PROVIDERS: ADMIT Obstetrics & Gynecology Gynecology; ATTEND Obstetrics & Gynecology Gynecology
PROC: 10D07Z6 Extraction of Products of Conception, Vacuum, Via Natural or Artificial Opening (ICD-10-PCS; principal; 2019-09-07)
DX: O41.03X0 Oligohydramnios, third trimester, not applicable or unspecified (principal); Z37.0 Single live birth; O76 Abnormality in fetal heart rate and rhythm complicating labor and delivery; Z3A.40 40 weeks gestation of pregnancy
CPT/HCPCS: 36415; 76819; 80307; 81005; 84112; 85025; 85027; 86592; 86850; 86900; 86901; 87086; 94760; J2270; J2590; J3010; J3490